=== PATIENT | female | born 1995 ===

== ENCOUNTER 2017-01-05 09:27 | Emergency (ER) | payer OTHER ==
--- NOTE | 2017-01-05 11:20 | RAD ---
Indication: Left foot pain. Left foot inversion. 3 views of the left foot demonstrates nondisplaced fracture through the base of the fifth metatarsal. No significant displacement is noted. IMPRESSION: Nondisplaced fracture base of the fifth metatarsal.
--- NOTE | 2017-01-05 11:50 | UC ---
Lower Extremity/Ankle HPI - HPI Summary HPI Summary: Patient presents to with left foot pain after rolling ankle and injuring the area yesterday. She denies ankle pain or swelling. There is slight ecchymosis over the lateral dorsum of the foot involving the deltoid ligament. She was able to bear weight after the incident, but with pain. Denies pain at rest and elevation. No radiation of pain. Denies knee pain. Pulses +2 bilaterally. - History of Current Complaint Chief Complaint: UCLowerExtremity Stated Complaint: FOOT INJURY Time Seen by Provider: 01/05/17 10:44 Hx Obtained From: Patient ?: No Onset/Duration: Sudden Onset Severity Initially: Moderate Severity Currently: Moderate Pain Intensity: 5 Pain Scale Used: 0-10 Numeric Aggravating Factor(s): Standing, Ambulation Alleviating Factor(s): Rest, Elevation Able to Bear Weight: Yes - Risk Factors Gout Risk Factors: Negative DVT Risk Factors: Negative Septic Arthritis Risk Factor: Negative - Allergies/Home Medications Allergies/Adverse Reactions: Allergies Allergy/AdvReac Type Severity Reaction Status Date / Time No Known Allergies Allergy Verified 01/05/17 09:40 Home Medications: Home Medications Amphetamine-Dextroamphetamine [Adderall 10 mg-] 1 tab PO BID 01/05/17 [History Confirmed 01/05/17] PMH/Surg Hx/FS Hx/Imm Hx Previously Healthy: Yes - Surgical History Surgical History: Yes Surgery Procedure, Year, and Place: wisdome teeth removed - Family History Known Family History: Positive: Unknown - Social History Occupation: Employed Full-time Lives: With Family Alcohol Use: Weekly Substance Use Type: Marijuana Substance Use Comment - Amount & Last Used: dano Smoking Status (MU): Never Smoked Tobacco Review of Systems Constitutional: Negative Eyes: Negative ENT: Negative Respiratory: Negative Cardiovascular: Negative Motor: Decreased ROM Neurovascular: Negative Musculoskeletal: Arthralgia - left foot pain Neurological: Negative Psychological: Negative All Other Systems Reviewed And Are Negative: Yes Physical Exam Triage Information Reviewed: Yes Appearance: Well-Appearing, No Pain Distress, Well-Nourished Vital Signs: Initial Vital Signs Temp 97.8 F 01/05/17 09:36 Pulse 73 01/05/17 09:36 Resp 18 01/05/17 09:36 BP 120/52 01/05/17 09:36 Pulse Ox 99 01/05/17 09:36 Vital Signs Reviewed: Yes Eye Exam: Normal Eyes: Positive: Conjunctiva Clear Neck exam: Normal Neck: Positive: Supple, No Lymphadenopathy Respiratory Exam: Normal Respiratory: Positive: Chest non-tender Musculoskeletal Exam: Normal Musculoskeletal: Positive: Strength Intact Neurological Exam: Normal Neurological: Positive: Alert Psychological: Positive: Normal Response To Family, Age Appropriate Behavior Skin Exam: Normal Lower Extremity Course/Dx - Course Course Of Treatment: Patitent presents with left foot pain after a fall yesterday. Denies other injuries. IMPRESSION: Nondisplaced fracture base of the fifth metatarsal. Patient requests cam boot and does not want a post op shoe. Follow up with DR. Shaw. - Differential Dx/Diagnosis Differential Diagnosis/HQI/PQRI: Contusion, Fracture (Closed), Fracture (Open), Strain Provider Diagnoses: 5th Metatarsal Non-displaced fracture Discharge - Discharge Plan Condition: Stable Disposition: HOME Patient Education Materials: Foot Fracture in Adults (ED) Forms: *Work Release Referrals: Corby Montana MD [Primary Care Provider] - Dinorah Shaw MD [Medical Doctor] - Additional Instructions: Follow up with Dr. Shaw Continue with boot Ibuprofen 600mg three times daily Ice Elevate as needed
== END 2017-01-05 11:46 | disposition home or self-care (01) ==
LOC: UCEAST 09:27
DX: S92.352A Displaced fracture of fifth metatarsal bone, left foot, initial encounter for closed fracture (principal); W19.XXXA Unspecified fall, initial encounter; Y92.9 Unspecified place or not applicable
CPT/HCPCS: 99202; G0463